=== PATIENT | male | born 1945 | race Hispanic/Latino ===

== ENCOUNTER 2023-02-06 19:44 | Day surgery (SDC) | payer MEDICARE ==
[2023-02-06] MEDS ORDERED: Tranexamic Acid 1,000 MG/10 ML VIAL ONE (19:48)
[2023-02-06] MEDS ORDERED: Morphine 4 MG/ML VIAL ONE (19:51)
[2023-02-06] MEDS ORDERED: HYDROmorphone 0.5 MG/0.5 ML SYRINGE ONE (20:01)
[2023-02-06] MEDS ORDERED: SUGAMMADEX SODIUM 200 MG/2 ML VIAL ONE (20:01)
[2023-02-06] MEDS ORDERED: fentaNYL PF 100 MCG/2 ML SYRINGE ONE (20:01)
[2023-02-06] MEDS ORDERED: Dexmedetomidine 200 MCG/2 ML VIAL ONE (20:01)
[2023-02-06 20:16] LABS: #Basophils 0.1 thou/uL (0.0-0.2); #Eosinphils 0.3 thou/uL (0.0-0.7); #Lymphocytes 2.3 thou/uL (1.20-3.40); #Monocytes 0.4 thou/uL (0.11-0.59); #Neutrophils 7.1 thou/uL (1.40-6.50); %Basophils 0.7 % (0.0-1.0); %Eosinophils 3.4 % (0.0-10.0); %Lymphocytes 22.4 % (21.0-51.0); %Monocytes 3.8 % (0.0-10.0); %Neutrophils 69.6 % (42.0-75.0); Hemoglobin 12.3 g/dL (14.0-18.0); Mean Corpuscular HGB CONC 35.8 g/dL (32.0-36.0); Mean Corpuscular Hemoglobin 35.8 pg (27.0-31.0); Mean Platelet Volume 9.3 fL (7.4-10.4); Platelet Count 146 10x3/uL (130-400); Red Blood Cell (RBC) Count 3.44 mill/uL (4.70-6.10); White Blood Cell (WBC) Count 10.2 10x3/uL (4.8-10.8)
[2023-02-06] MEDS ORDERED: Thrombin 5000 UNITS/5 ML VIAL ONE (20:16)
[2023-02-06] MEDS ORDERED: Bacitracin Zinc Ointment 30 gm TUBE ONE ×2 (20:16→21:30)
[2023-02-06] MEDS ORDERED: Bupivacaine PF 0.5% 30 ML VIAL ONE (20:16)
[2023-02-06] MEDS ORDERED: Bupivacaine HCl 0.5%/Epinephrine 1:200,000/PF 30 ml Vial ONE (20:16)
[2023-02-06] MEDS ORDERED: Heparin 5,000 UNITS/ML VIAL ONE (20:21)
[2023-02-06 20:26] LABS: INR-International Normal Ratio 1.1; PTT 27.6 sec (22.9-36.1); Prothrombin Time 14.5 sec (12.0-14.7)
[2023-02-06] MEDS ORDERED: PROPOFOL 200 MG/20 ML VIAL ONE (20:30)
[2023-02-06] MEDS ORDERED: Ondansetron PF 4 MG/2 ML Vial ONE (20:30)
[2023-02-06] MEDS ORDERED: ePHEDrine 50 MG/ML VIAL ONE (20:30)
[2023-02-06] MEDS ORDERED: Rocuronium Bromide 10 MG/ML (10ML VIAL) ONE (20:30)
[2023-02-06] MEDS ORDERED: Lidocaine 1% PF 5 ML VIAL ONE (20:30)
[2023-02-06] MEDS ORDERED: Succinylcholine Chloride 100 MG/5 ML SYRINGE FS ONE (20:30)
[2023-02-06] MEDS ORDERED: Phenylephrine 10 MG/ML VIAL ONE (20:30)
[2023-02-06 20:31] LABS: ALT (SGPT) 15 U/L (8-55); AST (SGOT) 21 U/L (5-34); Alkaline Phosphatase 124 U/L (40-110); Anion Gap 21 mmol/L (10-20); BUN (Urea Nitrogen) 17 mg/dL (8.4-25.7); Bilirubin, Total 0.9 mg/dL (0.2-1.2); Calc. Creatinine Clearance 0 mL/min (70-130); Calcium 9.3 mg/dL (7.8-10.44); Carbon Dioxide 17 mmol/L (23-31); Chloride 106 mmol/L (98-107); Estimated GFR 46; Globulin 3.8 g/dL (2.4-3.5); Glucose 256 mg/dL (83-110); Potassium 3.4 mmol/L (3.5-5.1); Protein, Total 7.8 g/dL (5.8-8.1); Sodium 141 mmol/L (136-145)
[2023-02-06] MEDS ORDERED: Sevoflurane 250 ML INH ANEST BOTTLE ONE (20:44)
[2023-02-06] MEDS ORDERED: Ondansetron ODT 4 MG TAB ONE (22:49)
== END 2023-02-06 23:10 | disposition admitted as inpatient to this hospital (09) ==
LOC: ERS 19:44 → SDC/OP 20:21 → ERS 20:21 → SDC/OP 23:10
PROVIDERS: ATTEND Surgery
PROC: 03U807Z Supplement Left Brachial Artery with Autologous Tissue Substitute, Open Approach (ICD-10-PCS; principal; 2023-02-06)
PROC: 0HBEXZZ Excision of Left Lower Arm Skin, External Approach (ICD-10-PCS; 2023-02-06)
DX: S56.822A Laceration of other muscles, fascia and tendons at forearm level, left arm, initial encounter (principal); S51.812A Laceration without foreign body of left forearm, initial encounter; W26.8XXA Contact with other sharp object(s), not elsewhere classified, initial encounter
CPT/HCPCS: 36416; 86850; 86900; 86901; 96374; 96375; G0390; J1170; J1644; J2270; J2370; J2405; J2704; J3490; Q0162; S0020